=== PATIENT | male | born 1975 | race Caucasian/White ===

== ENCOUNTER 2016-06-30 00:41 | Observation (INO) | payer MEDICAID ==
[~2016-06-30] VITALS: Ht 182.9 cm; Wt 105.8 kg
[2016-06-30] MEDS ORDERED: SODIUM CHLORIDE 0.9% 1,000 ML ONE (02:10)
[2016-06-30] MEDS ORDERED: INSULIN DRIP 1 UNIT/ML 100 ML IV SCH ×2 (02:20→03:30)
[2016-06-30] MEDS ORDERED: DEXTROSE 50% SYRINGE 50 ML IV PRN ×3 (02:20→09:20)
[2016-06-30] MEDS ORDERED: LEVEMIR INSULIN SUBQ ONE (04:20)
[2016-06-30 05:17] VITALS: BP_SYST 120; BP_SYST 126; RESP 16; TEMP 98.2
[2016-06-30 05:18] VITALS: Ht 182.9 cm; Wt 105.8 kg
[2016-06-30] MEDS ORDERED: *PINK BRACELET XX ONE (06:05)
[2016-06-30 07:52] VITALS: BP_SYST 114; RESP 16; TEMP 97.8
[2016-06-30] MEDS: *HOME MEDS KEPT IN PHARMACY XX SCH ×2 (08:00→14:28)
[2016-06-30] MEDS ORDERED: LEVEMIR INSULIN SUBQ SCH (09:20)
[2016-06-30] MEDS ORDERED: ASPIRIN 81 MG CHEW TAB PO SCH (09:20)
[2016-06-30] MEDS ORDERED: GLUCAGON 1 MG VIAL IM PRN (09:20)
[2016-06-30 10:58] VITALS: BP_SYST 122; RESP 16; TEMP 98.3
[2016-06-30 14:11] VITALS: BP_SYST 122; RESP 16; TEMP 98.3
[2016-06-30] MEDS ORDERED: Atorvastatin 10 MG TAB PO SCH (21:00)
[2016-07-01] MEDS ORDERED: ERGOCALCIFEROL 50,000 UNITS (1.25 MG) CAP PO SCH (09:00)
== END 2016-06-30 13:10 | disposition home or self-care (01) ==
LOC: ENRESERVTM → ENRESERVDT → ER 00:41 → EMR 03:04 → ENPENDDIS 03:04 → 4THW 04:37
PROVIDERS: ADMIT Internal Medicine; ATTEND Internal Medicine
DX: E11.65 Type 2 diabetes mellitus with hyperglycemia (principal); I10 Essential (primary) hypertension; E78.5 Hyperlipidemia, unspecified; F17.210 Nicotine dependence, cigarettes, uncomplicated; Z79.4 Long term (current) use of insulin; Z79.82 Long term (current) use of aspirin
CPT/HCPCS: 36415; 80053; 81003; 82947; 85025; 96361; 96365; 96366; 96372